=== PATIENT | female | born 1955 | race Caucasian/White ===

== ENCOUNTER → 2018-03-17 | Outpatient (CLI) | payer OTHER ==
[2005-08-22 12:20] VITALS: TEMP 97.1
== END ==
LOC: MC.RAD 13:19
DX: Z12.31 Encounter for screening mammogram for malignant neoplasm of breast (principal)

== ENCOUNTER → 2019-03-17 | Outpatient (CLI) | payer OTHER ==
[2005-08-22 12:20] VITALS: TEMP 97.1
== END ==
LOC: MC.RAD 10:11
DX: Z12.31 Encounter for screening mammogram for malignant neoplasm of breast (principal)

== ENCOUNTER → 2020-03-19 | Outpatient (CLI) | payer OTHER ==
[2005-08-22 12:20] VITALS: TEMP 97.1
== END ==
LOC: MC.RAD 12:23
DX: Z12.31 Encounter for screening mammogram for malignant neoplasm of breast (principal); Z23 Encounter for immunization

== ENCOUNTER → 2021-04-19 | Outpatient (CLI) | payer MEDICARE ==
[2005-08-22 12:20] VITALS: TEMP 97.1
== END ==
LOC: MC.RAD 12:52
DX: Z12.31 Encounter for screening mammogram for malignant neoplasm of breast (principal)